=== PATIENT | female | born 1995 | race American Indian/Alaskan Native ===

== ENCOUNTER 2017-09-20 17:24 | Emergency (ER) | payer SELFPAY ==
[2017-09-20 17:30] VITALS: TEMP 99.1
[2017-09-20 18:14] LABS: RBC URINE 1 /hpf (0-3); URINE BACTERIA RARE (<OCC); URINE BILIRUBIN NEGATIVE (NEGATIVE); URINE BLOOD NEGATIVE (NEGATIVE); URINE COLOR Yellow (YELLOW); URINE GLUCOSE (UA) NORMAL (Normal); URINE KETONE NEGATIVE (NEGATIVE); URINE LEUKOCYTE ESTERASE NEG Leu/uL (Negative); URINE PROTEIN NEGATIVE (NEGATIVE); URINE UROBILINOGEN NORMAL mg/dL (0.2-1.0); WBC URINE < 1 /hpf (0-5)
--- NOTE | 2017-09-20 18:23 | C.PDOC ---
History Of Present Illness 22 year old female presents to the ED for evaluation of white vaginal discharge associated with vaginal discomfort and suprapubic pressure-like pain for 2 days. Patient denies fever, dysuria, or possibility of sexually transmitted infection. Time Seen by Provider: 09/20/17 17:31 Chief Complaint (Nursing): Female Genitourinary History Per: Patient History/Exam Limitations: no limitations Onset/Duration Of Symptoms: Days (2) Current Symptoms Are (Timing): Still Present Quality Of Discomfort: Pressure, "Pain" Associated Symptoms: denies: Fever, Chills, Urinary Symptoms (dysuria ) Additional History Per: Patient Abnormal Vaginal Bleeding: No Past Medical History Reviewed: Historical Data, Nursing Documentation, Vital Signs Vital Signs: Last Vital Signs Temp 99.1 F 09/20/17 17:27 Pulse 72 09/20/17 19:37 Resp 18 09/20/17 19:37 BP 119/68 09/20/17 19:37 Pulse Ox 100 09/20/17 21:04 - Medical History PMH: No Chronic Diseases Surgical History: No Surg Hx Family History: States: Unknown Family Hx - Social History Hx Tobacco Use: No Hx Alcohol Use: No Hx Substance Use: No - Immunization History Hx Tetanus Toxoid Vaccination: No Hx Influenza Vaccination: No Hx Pneumococcal Vaccination: No Review Of Systems Constitutional: Negative for: Fever, Chills Gastrointestinal: Positive for: Other (suprapubic pressure ) Genitourinary: Positive for: Vaginal Discharge (white ) Physical Exam - Physical Exam Appears: Non-toxic, No Acute Distress Skin: Normal Color, Warm, Dry Head: Atraumatic, Normacephalic Eye(s): bilateral: Normal Inspection Neck: Normal ROM Chest: Symmetrical Cardiovascular: Rhythm Regular Respiratory: Normal Breath Sounds, No Wheezing Gastrointestinal/Abdominal: Soft, No Tenderness, No Distention, No Guarding, No Rebound Pelvic: No Vaginal Bleeding, Vaginal Discharge (white, non-odorous ), No Cervical Motion Tenderness, No Adnexal Tenderness Extremity: Bilateral: Atraumatic Neurological/Psych: Oriented x3, Normal Speech ED Course And Treatment O2 Sat by Pulse Oximetry: 100 (on RA) Pulse Ox Interpretation: Normal Medical Decision Making Medical Decision Making: Impression: 22 year old female with vaginal discharge, suprapubic pressure Plan: * Urine Culture * Chlamydia/GC * Urinalysis * reassess and disposition Progress: Urine culture obtained and sent to lab for further evaluation. Urinalysis ordered and reviewed. On reassessment, patient is resting comfortably, showing no signs of distress and is stable for discharge. Patient is advised to follow up with her PMD/[facility] within 1-2 days for further evaluation and/or return to the ED if symptoms persist or worsen. Disposition Counseled Patient/Family Regarding: Diagnosis, Need For Followup, Rx Given - Disposition Disposition: HOME/ ROUTINE Disposition Time: 18:20 Condition: STABLE Additional Instructions: Follow up with your primary medical doctor or clinic in 2-5 days for further evaluation. Take medications as prescribed. Return to the emergency department at any time if symptoms persist or worsen. Prescriptions: metroNIDAZOLE [Flagyl] 500 mg PO BID #14 tab Instructions: Metronidazole (By mouth), Bacterial Vaginosis (ED) Forms: YAMAP (Occitan) - POA Present On Arrival: None - Clinical Impression Clinical Impression: Vaginitis - PA / WHEEL [employer]ER / Resident Statement MD/DO has reviewed & agrees with the documentation as recorded. - Scribe Statement The provider has reviewed the documentation as recorded by the Scribe (Consuelo Bustos) All medical record entries made by the Scribe were at my direction and personally dictated by me. I have reviewed the chart and agree that the record accurately reflects my personal performance of the history, physical exam, medical decision making, and the department course for this patient. I have also personally directed, reviewed, and agree with the discharge instructions and disposition.
[2017-09-20 19:38] VITALS: BP 119/68; PULSE 72; RESP 18
[2017-09-20 20:56] VITALS: O2SAT 100
== END 2017-09-20 19:38 | disposition home or self-care (01) ==
LOC: C.ER 17:24
DX: N76.0 Acute vaginitis (principal)